=== PATIENT | male | born 1975 | race Asian ===

== ENCOUNTER 2020-08-08 10:10 | Emergency (ER) | payer OTHER ==
[~2020-08-08] VITALS: Ht 180.3 cm; Wt 90.3 kg
[2020-08-08 10:23] VITALS: Ht 180.3 cm; Wt 90.3 kg
[2020-08-08 11:57] VITALS: BP 149/95
== END 2020-08-08 11:57 | disposition home or self-care (01) ==
LOC: ED 10:10
DX: S61.412A Laceration without foreign body of left hand, initial encounter (principal); W25.XXXA Contact with sharp glass, initial encounter; Y93.89 Activity, other specified; Y92.89 Other specified places as the place of occurrence of the external cause; Y99.8 Other external cause status
CPT/HCPCS: 90715; J2001

== ENCOUNTER 2020-08-10 14:10 | Emergency (ER) | payer OTHER ==
[~2020-08-10] VITALS: Ht 182.9 cm; Wt 90.7 kg
[2020-08-10 14:15] VITALS: BP 121/80; Ht 182.9 cm; Wt 90.7 kg
== END 2020-08-10 14:44 | disposition home or self-care (01) ==
LOC: ED 14:10
DX: S61.412D Laceration without foreign body of left hand, subsequent encounter (principal); X58.XXXD Exposure to other specified factors, subsequent encounter